=== PATIENT | female | born 1985 | race American Indian/Alaskan Native ===

== ENCOUNTER 2017-01-24 10:31 | Emergency (ER) | payer MEDICAID ==
--- NOTE | 2017-01-24 11:13 | Emergency Department Report ---
Entered by GALINA YOUNG, acting as scribe for APURVA AQUINO PA. Chief Complaint: Chest Pain Stated Complaint: CHEST PAIN/BI LATERAL ARM/LEG PAIN/NUMBNESS Time Seen by Provider: 01/24/17 10:58 - HPI History of Present Illness: 31 y/o female presents c/o right and left shoulder pain radiating down to arms, numbness, intermittent chest and abd pain. Pt denies vaginal bleeding or discharge and dysuria. 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 Well-developed, well-nourished. CV: Regular rate and rhythm. No murmurs rubs or gallops. Lungs: Clear to auscultation bilaterally. Abdomen: No tenderness to palpation in triage. No guarding or rebound tenderness. Normal bowel sounds. Mini Neuro: Alert and oriented 3. MSE screening note: Focused history and physical exam performed. Due to findings the following was ordered: ED Medical Decision Making - Medical Decision Making patient was in NAD in triage. cardiac pack and OB US was ordered ED Disposition for MSE Condition: Stable This documentation as recorded by the scribe,GALINA YOUNG,accurately reflects the service I personally performed and the decisions made by tx,APURVA AQUINO PA.
[2017-01-24 11:42] LABS: Creatine Kinase MB 2.2 ng/mL (0.0-4.0)
[2017-01-24 11:44] LABS: Alanine Aminotransferase 8 units/L (7-56); Albumin 3.1 g/dL (3.9-5); Alkaline Phosphatase 57 units/L (35-129); Anion Gap 18 mmol/L; Basophils % (Auto) 0.2 % (0.0-1.8); Bilirubin,Total < 0.20 mg/dL (0.1-1.2); Blood Urea Nitrogen 6 mg/dL (7-17); Calcium 8.1 mg/dL (8.4-10.2); Carbon Dioxide 21 mmol/L (22-30); Chloride 102.6 mmol/L (98-107); Creatine Kinase 115 units/L (30-135); Eosinophils % (Auto) 0.5 % (0.0-4.3); Glucose 105 mg/dL (65-100); Hematocrit 28.2 % (30.3-42.9); Hemoglobin 9.4 gm/dl (10.1-14.3); Lipase 28 units/L (13-60); Mean Corpuscular HGB Conc 33 % (30-34); Mean Corpuscular Hemoglobin 31 pg (28-32); Mean Corpuscular Volume 92 fl (79-97); Platelet Count 176 K/mm3 (140-440); Potassium 3.6 mmol/L (3.6-5.0); Red Blood Count 3.06 M/mm3 (3.65-5.03); Red Cell Distribution Width 12.9 % (13.2-15.2); Sodium 138 mmol/L (137-145); Total Protein 6.1 g/dL (6.3-8.2); White Blood Count 11.7 K/mm3 (4.5-11.0)
[2017-01-24 11:51] LABS: INR 1.09 (0.87-1.13)
[2017-01-24 11:52] LABS: Partial Thromboplastin Time 28.9 Sec. (24.2-36.6)
--- NOTE | 2017-01-24 11:58 | Ultrasound Report ---
OB ULTRASOUND GREATER THAN 14 WEEKS INDICATION: Pelvic pain. COMPARISON: None similar at this institution. TECHNIQUE: Transabdominal grayscale ultrasound with Doppler interrogation. Gestation: [place] Position: Transverse - head to maternal right Amniotic Fluid: WNL (7-24 cm) MISTY = 17.7 cm Placenta: Posterior Placental Grade: I Heart Rate: 127 BPM Cervical length: 4.4 cm (Normal > 3 cm) ANATOMY VISUALIZED: Stomach Kidneys Bladder 4 Chamber Heart Heart 3 Vessel Cord Abd. Cord Insert SPINE VISUALIZED: Limited spine due to position The following are not demonstrated due to maternal body habitus or lie: Neuroanatomy, diaphragm, spine BPD: 8.3 cm = 33 w 1 d HC: 29.5 cm = 32 w 3 d AC: 31.6 cm = 35 w 3 d FL: 6.2 cm = 32 w 0 d HC/AC Ratio: 86.5 Cephalic Index: 0.93 Estimated Weight: 2443 grams Clinical age = 32 w 4 d EDC: 03/17/2017 US Gest. Age = 33 w 1 d EDC: 03/13/2017 CONCLUSION: Single, viable intrauterine gestation with ultrasound estimated age of 33 weeks and 1 day and EDC of 03/13/2017, currently in transverse lie with details, as above. Thank you for the opportunity to participate in this patient's care.
[2017-01-24 13:08] LABS: Bacteria,Urine 1+ /HPF (Negative); Mucus,Urine FEW /HPF
[2017-01-24 13:16] LABS: Bilirubin,Urine NEG (Negative); Blood,Urine NEG (Negative); Ketones,Urine NEG (Negative); Leukocyte Esterase,Urine MOD (Negative); Nitrite,Urine NEG (Negative); Protein,Urine <15 mg/dL mg/dL (Negative); Urobilinogen,Urine < 2.0 mg/dL (<2.0)
[2017-01-24 15:42] VITALS: BP 126/82
--- NOTE | 2017-01-25 07:57 | Vascular Lab Report ---
LOWER EXTREMITY VENOUS DUPLEX: REASON FOR EXAM: Elevated d-dimer. COMMENTS ON THE RIGHT: All veins visualized are freely compressible without evidence of internal echogenicity. Flow is spontaneous and phasic throughout. COMMENTS ON THE LEFT: All veins visualized are freely compressible without evidence of internal echogenicity. Flow is spontaneous and phasic throughout. IMPRESSION: No evidence of acute or chronic deep venous thrombosis in either lower extremity.
== END 2017-01-24 15:40 | disposition left against medical advice (07) ==
LOC: ED 10:31
DX: M25.511 Pain in right shoulder (principal); M25.512 Pain in left shoulder; R20.0 Anesthesia of skin; R07.9 Chest pain, unspecified; R10.9 Unspecified abdominal pain
CPT/HCPCS: 36415; 76805; 80053; 81001; 82550; 82553; 83690; 84484; 85025; 85379; 85610; 85730; 93005; 93010; 93306; 93970; 99284

== ENCOUNTER 2017-01-24 16:53 | Emergency (ER) | payer MEDICAID ==
--- NOTE | 2017-01-24 17:25 | Emergency Department Report ---
ED Chest Pain HPI - General Chief Complaint: Chest Pain Stated Complaint: CP/ABD PAIN/NUMBNESS Time Seen by Provider: 01/24/17 17:20 Source: patient Mode of arrival: Ambulatory Limitations: No Limitations - History of Present Illness Initial Comments: patient approximately 32 weeks . Denies fam hx sudden cardiac , PE, DVT Complaint: chest pain -: days(s) Onset: during rest Pain Location: substernal Pain Radiation: none Severity scale (0 -10): 1 Quality: other (burning) Consistency: intermittent Improves With: nothing Worsens With: eating re: denies: nausea, vomting, diaphoresis, dyspnea, sense of impending doom Other Symptoms: denies: cough, fever, syncope, rash, acid taste in mouth, palpitations, burping - Related Data Home Medications Medication Instructions Recorded Confirmed Last Taken No Known Home Medications [No 01/24/17 01/24/17 Unknown Reported Home Medications] Allergies Allergy/AdvReac Type Severity Reaction Status Date / Time No Known Allergies Allergy Verified 01/24/17 17:01 REESE score - Reese Score Age > 65: (0) No Aspirin use within the Past 7 Days: (0) No 3 or more CAD Risk Factors: (0) No 2 or more Angina events in past 24 hrs: (0) No Known CAD with more than 50% Stenosis: (0) No Elevated Cardiac Markers: (0) No ST Deviation Greater than 0.5mm: (0) No REESE Score: 0 ED Review of Systems ROS: Stated complaint: CP/ABD PAIN/NUMBNESS Other details as noted in HPI Other: GENERAL: No weight change, fatigue, weakness, fever, chills, or night sweats SKIN: No changes in skin or hair, no itching, no rashes, no jaundice HEAD: No trauma, headache, or visual changes EYES: No blurriness, tearing, itching, acute visual loss, conjunctival discoloration, or scleral icterus EARS: No hearing loss, tinnitus, vertigo, or earache NOSE: No rhinorrhea, stuffiness, sneezing, itching, or epistaxis MOUTH: No bleeding gums, hoarseness, sore throat, or swelling CARDIAC: chest pain RESPIRATORY: No shortness of breath, wheeze, cough, sputum production, hemoptysis, pneumonia, asthma, bronchitis, or emphysema GI: No change in appetite, nausea, vomiting, dysphagia, change in bowel frequency, diarrhea, constipation, bleeding, hematemesis, melena, hematochezia, or abdominal pain URINARY: No frequency, urgency, polyuria, dysuria, hematuria, or incontinence MUSCULOSKELETAL: No muscle weakness, joint stiffness, decrease in range of motion, redness, swelling, tenderness NEUROLOGIC: No loss of sensation, numbness, tingling, tremors, weakness, paralysis, seizures HEMATOLOGIC: No anemia, easy bruising, bleeding, petechiae, or purpura ENDOCRINE: No hot or cold intolerance, sweating, polyuria, polydipsia or, polyphagia no thyroid problems PSYCHIATRIC: No change in mood, no anxiety, no depression ED Past Medical Hx - Past Medical History Previous Medical History?: No - Surgical History Past Surgical History?: No - Social History Smoking Status: Former Smoker Substance Use Type: None - Medications Home Medications: Home Medications Medication Instructions Recorded Confirmed Last Taken Type No Known Home Medications [No 01/24/17 01/24/17 Unknown History Reported Home Medications] ED Physical Exam - General Limitations: No Limitations - Other Other exam information: GENERAL: Patient in no acute distress HEAD: Normocephalic, atraumatic EYES: PERRLA, EOM intact, no scleral icterus, no papilledema, no conjunctival hemorrhage, visual marcial and acuity wnl, NOSE: No tenderness, discharge, sinus tenderness MOUTH: No erythema, bleeding, exudate HEART: Regular rate and rhythm, no murmur, S1-S2 are auscultated, pulses are symmetric LUNGS: No wheezing, rales, rhonchi, bilateral breath sounds ABDOMEN: Distended abdomen. Normal bowel sounds, no tenderness, no rebound, no guarding, no masses, no CVA tenderness MUSCULOSKELETAL: Normal joint range of motion, no redness, no swelling, no tenderness NEUROLOGIC: GCS 15, Alert and Oriented x3, Cranial nerves intact, normal sensation, normal strength, normal gait, no cerebellar deficit PSYCHIATRIC: No homicidal or suicidal ideation, no anxiety, no depression, no hallucinations SKIN: Skin is warm and dry, no wounds, no rashes ED Course Vital Signs 01/24/17 01/24/17 17:03 19:07 Temperature 98.4 F 98.4 F Pulse Rate 88 89 Respiratory 18 18 Rate Blood Pressure 117/74 Blood Pressure 120/70 [Left] O2 Sat by Pulse 98 100 Oximetry ED Medical Decision Making - EKG Data When compared to previous EKG there are: no significant change - Radiology Data Radiology results: report reviewed - Medical Decision Making At 1800 Dr. Be agrees low risk for PE with stable VSS, prolonged stable observation and normal ECHO and neg DVT. Ok to f/u o/p closely. AT 1754 Dr Carl cardiology recommends if suspicion high consider V/Q scan. Ok for discharge if low suspicion with o/p f/u. 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 Reports no chest pain. VSS. No acute distress. Prolonged stable observation. Patient comfortable. Updated with results. Plan discharge with outpatient follow-up. Patient agrees with plan and will return if symptoms worsen. Critical Care Time: Yes Critical care time in (mins) excluding proc time.: 42 Critical care attestation.: If time is entered above; I have spent that time in minutes in the direct care of this critically ill patient, excluding procedure time. ED Disposition Clinical Impression: Chest pain Qualifiers: Chest pain type: unspecified Qualified Code(s): R07.9 - Chest pain, unspecified Disposition: DISCHARGED TO HOME OR SELFCARE Is pt being admited?: No Condition: Stable Instructions: Chest Pain (ED) Referrals: VICKI CHUN MD [Staff Physician] - 2-3 Days MARTHA BE MD [Referring] - 2-3 Days Forms: Work/School Release Form(ED) Time of Disposition: 18:07
[2017-01-24 19:09] VITALS: BP 120/70
== END 2017-01-24 19:06 | disposition home or self-care (01) ==
LOC: ED 16:53
DX: O26.893 Other specified pregnancy related conditions, third trimester (principal); R07.9 Chest pain, unspecified; Z87.891 Personal history of nicotine dependence; Z3A.32 32 weeks gestation of pregnancy
CPT/HCPCS: 99282; 99291

== ENCOUNTER 2017-02-18 00:19 | Outpatient (CLI) | payer MEDICAID ==
[2017-02-18 00:32] VITALS: BP 119/68
[2017-02-18] MEDS ORDERED: LACTATED RINGERS 500 ML IV ONE (00:48)
== END 2017-02-18 01:25 | disposition home or self-care (01) ==
LOC: TRG 00:19
PROVIDERS: ATTEND Obstetrics & Gynecology
DX: O47.03 False labor before 37 completed weeks of gestation, third trimester (principal); Z3A.36 36 weeks gestation of pregnancy

== ENCOUNTER 2021-01-16 10:01 | Emergency (ER) | payer MEDICAID ==
[2021-01-16 10:12] VITALS: BP 142/98
[2021-01-16] MEDS ORDERED: FLUORESCEIN 1 MG STRIP OP ONE (10:49)
[2021-01-16] MEDS ORDERED: TETRACAINE 0.5% OPHTH SOLN 4ML OU PRN (10:49)
--- NOTE | 2021-01-16 10:49 | Emergency Department Report ---
ED General Adult HPI - General Chief complaint: Eye Problems Stated complaint: EYE IRRITATION Time Seen by Provider: 01/16/21 10:18 Source: patient Mode of arrival: Ambulatory Limitations: No Limitations - History of Present Illness Initial comments: 35-year-old -[place] female patient presents with complaints of right eye pain x2 days. Patient states while at work 2 days ago symptoms got in her eye and began to irritated. She states her eye began to water and that it has been in throbbing aching pain since. She denies any direct trauma to the eye, but admits to photophobia. No vision changes per patient. Pain worsens with touch, but not with movement of the eyeball per patient. She admits to waking up with her eye crusted shut this morning and purulent drainage. Patient rates her pain as 8/10 in severity and denies trying any OTC medications for symptoms. She is not a contact lens wearer per patient. Severity scale (0 -10): 7 - Related Data Previous Rx's Medication Instructions Recorded Last Taken Type Acetaminophen/Codeine [Tylenol 1 tab PO Q8H PRN #3 tab 01/16/21 Unknown Rx /Codeine # 3 tab] Erythromycin [Erythromycin Ophth 1 cm OP Q3H 7 Days #1 tube 01/16/21 Unknown Rx Oint] Ibuprofen [Motrin 800 MG tab] 800 mg PO Q8HR PRN #20 tablet 01/16/21 Unknown Rx Allergies Allergy/AdvReac Type Severity Reaction Status Date / Time No Known Allergies Allergy Verified 01/24/17 17:01 ED Review of Systems ROS: Stated complaint: EYE IRRITATION Other details as noted in HPI Constitutional: denies: chills, fever Eyes: eye pain, eye discharge. denies: vision change ENT: denies: ear pain, throat pain Respiratory: denies: cough Skin: denies: lesions, change in color Neurological: denies: headache Hematological/Lymphatic: denies: swollen glands ED Past Medical Hx - Past Medical History Previous Medical History?: No Hx Hypertension: No Hx Diabetes: No Hx Deep Vein Thrombosis: No Hx Renal Disease: No Hx Sickle Cell Disease: No Hx Seizures: No Hx Asthma: No Hx HIV: No - Surgical History Past Surgical History?: No - Social History Smoking Status: Former Smoker - Medications Home Medications: Home Medications Medication Instructions Recorded Confirmed Last Taken Type Acetaminophen/Codeine [Tylenol 1 tab PO Q8H PRN #3 tab 01/16/21 Unknown Rx /Codeine # 3 tab] Erythromycin [Erythromycin Ophth 1 cm OP Q3H 7 Days #1 tube 01/16/21 Unknown Rx Oint] Ibuprofen [Motrin 800 MG tab] 800 mg PO Q8HR PRN #20 tablet 01/16/21 Unknown Rx ED Physical Exam - General Limitations: No Limitations General appearance: alert, in no apparent distress - Head Head exam: Present: atraumatic, normocephalic - Eye Eye exam: Present: PERRL, EOMI (No pain with eye movements), conjunctival injection (Right with mild purulent drainage noted). Absent: scleral icterus Pupils: Present: other (Fluorescein stain of the right eye is negative for any corneal abrasion or ulceration) - Expanded Eye Exam Expanded Sclera/Conjunctival: Exudate: Right - Neck Neck exam: Present: normal inspection - Respiratory Respiratory exam: Absent: respiratory distress - Cardiovascular Cardiovascular Exam: Present: regular rate - Neurological Exam Neurological exam: Present: alert, oriented X3 - Psychiatric Psychiatric exam: Present: normal affect, normal mood ED Course Vital Signs 01/16/21 01/16/21 10:11 11:22 Temperature 99.1 F Pulse Rate 78 Respiratory 18 20 Rate Blood Pressure 142/98 [Right] O2 Sat by Pulse 98 Oximetry ED Medical Decision Making - Medical Decision Making 35-year-old -[place] female patient presents with complaints of right eye pain x2 days. Patient states while at work 2 days ago symptoms got in her eye and began to irritated. She states her eye began to water and that it has been in throbbing aching pain since. She denies any direct trauma to the eye, but admits to photophobia. No vision changes per patient. Pain worsens with touch, but not with movement of the eyeball per patient. She admits to waking up with her eye crusted shut this morning and purulent drainage. Patient rates her pain as 8/10 in severity and denies trying any OTC medications for symptoms. She is not a contact lens wearer per patient. Eyelid everted and swept and no foreign bodies noted on exam. No corneal abrasions noted on fluorescein stain. Will treat for acute bacterial conjunctivitis with erythromycin. Discussed signs and symptoms that should prompt immediate return to the emergency department in detail with patient who verbalized understanding. Patient to follow-up with ophthalmology as needed, referral provided. Critical care attestation.: If time is entered above; I have spent that time in minutes in the direct care of this critically ill patient, excluding procedure time. ED Disposition Clinical Impression: Acute bacterial conjunctivitis of right eye Disposition: DC- TO HOME OR SELFCARE Is pt being admited?: No Condition: Stable Instructions: Bacterial Conjunctivitis, Adult, How to Use Eye Drops and Eye Ointments Prescriptions: Erythromycin [Erythromycin Ophth Oint] 1 cm OP Q3H 7 Days #1 tube Ibuprofen [Motrin 800 MG tab] 800 mg PO Q8HR PRN #20 tablet PRN Reason: pain Acetaminophen/Codeine [Tylenol /Codeine # 3 tab] 1 tab PO Q8H PRN #3 tab PRN Reason: Pain , Severe (7-10) Referrals: BERNARDO LAWLER MD [Staff Physician] - as needed Forms: Work/School Release Form(ED)
[2021-01-16] MEDS ORDERED: ACETAMINOPHEN 325 MG TAB PO ONE (11:06)
[2021-01-16] MEDS ORDERED: IBUPROFEN 800 MG TAB PO ONE (11:06)
== END 2021-01-16 11:22 | disposition home or self-care (01) ==
LOC: ED 10:01
DX: H10.31 Unspecified acute conjunctivitis, right eye (principal); B96.89 Other specified bacterial agents as the cause of diseases classified elsewhere; Z87.891 Personal history of nicotine dependence; Z79.1 Long term (current) use of non-steroidal anti-inflammatories (NSAID); Z79.899 Other long term (current) drug therapy

== ENCOUNTER 2021-04-19 07:42 | Emergency (ER) | payer MEDICAID ==
[2021-04-19 07:49] VITALS: BP 115/79
[2021-04-19 08:22] LABS: Amorphous Crystals,Urine Few; Bacteria,Urine 1+ /HPF (Negative); Bilirubin,Urine NEG (Negative); Blood,Urine LG (Negative); Color,Urine Yellow (Yellow); Mucus,Urine FEW /HPF; Protein,Urine <15 mg/dL mg/dL (Negative); Urobilinogen,Urine < 2.0 mg/dL (<2.0)
[2021-04-19 08:37] LABS: Basophils % (Auto) 0.4 % (0.0-1.8); Eosinophils # (Auto) 0.1 K/mm3 (0.0-0.4); Eosinophils % (Auto) 0.7 % (0.0-4.3); Hematocrit 36.6 % (30.3-42.9); Hemoglobin 12.4 gm/dl (10.1-14.3); Lymphocytes # (Auto) 1.9 K/mm3 (1.2-5.4); Lymphocytes % (Auto) 25.7 % (13.4-35.0); Mean Corpuscular HGB Conc 34 % (30-34); Mean Corpuscular Volume 95 fl (79-97); Monocytes # (Auto) 0.5 K/mm3 (0.0-0.8); Monocytes % (Auto) 6.8 % (0.0-7.3); Platelet Count 199 K/mm3 (140-440); Red Blood Count 3.85 M/mm3 (3.65-5.03); Red Cell Distribution Width 13.9 % (13.2-15.2)
--- NOTE | 2021-04-19 10:10 | Emergency Department Report ---
ED HPI - General Chief complaint: Vaginal Bleeding Stated complaint: ABD PAIN/CRAMPS Time Seen by Provider: 04/19/21 09:44 Source: patient Mode of arrival: Ambulatory Limitations: Language Barrier - History of Present Illness Initial comments: 35-year-old female is currently about 10 weeks presents to the ER today with complaints of abnormal vaginal bleeding. Patient states that she started bleeding yesterday. She states that she felt like she had to use the bathroom, and while walking to the bathroom she started noticed something dripping down her leg and when she looked there was blood. She described it as bleeding similar to when she first starts her period. She states that she only had tissue, but did not use any pads, tampons a panty liner as yesterday. She states that the bleeding had stopped by around 3:00 in the afternoon. She states that when she woke up this morning the bleeding has started again but this time heavier than what it was yesterday. Again she only used tissue which she has had to only changed once. She reports no clots. She reports cramping in her lower abdomen area and in her vaginal area. She states that she did do some strenuous lifting the day before yesterday when she moved the sofa and 2-3 before that she accidentally slipped fell while running to bathroom and lying on her stomach but she had no bleeding or abdominal symptoms at the time. She denies any recent sexual intercourse. She denies any UTI symptoms. She denies any fever or chills. She is G4, P3 Ab0. Her [facility] is [facility]. She states she had oB US at about 8weeks but she states wasn't told of the results. Complaint: vaginal bleeding -: Sudden (Yesterday) - Related Data Previous Rx's Medication Instructions Recorded Last Taken Type Acetaminophen/Codeine [Tylenol 1 tab PO Q8H PRN #3 tab 01/16/21 Unknown Rx /Codeine # 3 tab] Erythromycin [Erythromycin Ophth 1 cm OP Q3H 7 Days #1 tube 01/16/21 Unknown Rx Oint] Ibuprofen [Motrin 800 MG tab] 800 mg PO Q8HR PRN #20 tablet 01/16/21 Unknown Rx Allergies Allergy/AdvReac Type Severity Reaction Status Date / Time No Known Allergies Allergy Verified 01/24/17 17:01 ED Review of Systems ROS: Stated complaint: ABD PAIN/CRAMPS Other details as noted in HPI Comment: All other systems reviewed and negative Constitutional: denies: chills, fever Eyes: denies: eye pain, eye discharge, vision change ENT: denies: ear pain, throat pain, dental pain, hearing loss, epistaxis, congestion, other Respiratory: denies: cough, shortness of breath, SOB with exertion, SOB at rest, wheezing Cardiovascular: denies: chest pain, palpitations, edema, syncope, paroxysmal nocturnal dyspnea Gastrointestinal: abdominal pain. denies: nausea, vomiting, diarrhea, constipation, hematemesis, hematochezia Genitourinary: other (abnormal vag bleeding). denies: urgency, dysuria, frequency, hematuria, discharge, abnormal menses, dyspareunia Musculoskeletal: denies: back pain, joint swelling, arthralgia, myalgia Skin: denies: rash, lesions, change in color, change in hair/nails Neurological: denies: headache, weakness, numbness, paresthesias, confusion, abnormal gait, vertigo Psychiatric: denies: anxiety, depression, auditory hallucinations, visual hallucinations, homicidal thoughts Hematological/Lymphatic: denies: easy bleeding, easy bruising ED Past Medical Hx - Past Medical History Previous Medical History?: No Hx Hypertension: No Hx Diabetes: No Hx Deep Vein Thrombosis: No Hx Renal Disease: No Hx Sickle Cell Disease: No Hx Seizures: No Hx Asthma: No Hx HIV: No - Surgical History Past Surgical History?: No - Social History Smoking Status: Former Smoker - Medications Home Medications: Home Medications Medication Instructions Recorded Confirmed Last Taken Type Acetaminophen/Codeine [Tylenol 1 tab PO Q8H PRN #3 tab 01/16/21 Unknown Rx /Codeine # 3 tab] Erythromycin [Erythromycin Ophth 1 cm OP Q3H 7 Days #1 tube 01/16/21 Unknown Rx Oint] Ibuprofen [Motrin 800 MG tab] 800 mg PO Q8HR PRN #20 tablet 01/16/21 Unknown Rx ED Physical Exam - General Limitations: Language Barrier General appearance: alert, in no apparent distress - Head Head exam: Present: atraumatic, normocephalic, normal inspection - Eye Eye exam: Present: normal appearance, PERRL, EOMI Pupils: Present: normal accommodation - ENT ENT exam: Present: normal exam, mucous membranes moist, TM's normal bilaterally - Neck Neck exam: Present: normal inspection - Respiratory Respiratory exam: Present: normal lung sounds bilaterally. Absent: respiratory distress, wheezes, rales - Cardiovascular Cardiovascular Exam: Present: regular rate, normal rhythm, normal heart sounds - GI/Abdominal GI/Abdominal exam: Present: soft, tenderness (Mild ttp right lower quadrant and suprapubic area without guarding or rebound). Absent: distended - Neurological Exam Neurological exam: Present: alert, oriented X3, CN II-XII intact, normal gait - Psychiatric Psychiatric exam: Present: normal affect, normal mood - Skin Skin exam: Present: intact ED Course Vital Signs 04/19/21 07:48 Temperature 98.0 F Pulse Rate 82 Respiratory 18 Rate Blood Pressure 115/79 O2 Sat by Pulse 98 Oximetry ED Medical Decision Making - Lab Data Result diagrams: 04/19/21 08:03 - Radiology Data Radiology results: report reviewed Patient: MARVIN JACKSON MR#: [id number] : 1985 Acct:[id number] Age/Sex: 35 / F ADM Date: 04/19/21 Loc: ED Attending Dr: Ordering Physician: PAOLA MORSE Date of Service: 04/19/21 Procedure(s): US OB transvaginal Accession Number(s): [id number] cc: PAOLA OMRSE ULTRASOUND OB TRANSVAGINAL HISTORY: 10 week gestation, vaginal bleeding TECHNIQUE: Transabdominal ultrasound imaging with color Doppler interrogation. COMPARISON: No relevant comparison at this facility FINDINGS: The uterus is anteverted and measures 13 x 8 x 9 cm. No obvious uterine mass. The cervix is closed and measures 4.3 cm. An intrauterine gestational sac containing a pole is identified. [place]- rump length measures 34 mm which correlates with a 10 week 2 day . EDC: 11/13/2021. heart rate measures 157 bpm. Amniotic fluid volume appears normal. The placenta appears to be forming posteriorly. A moderate subchorionic hemorrhage is identified along the superior border of the gestational sac measuring 2.5 x 1.2 x 2.7 cm. The right ovary measures 3.5 x 2.4 x 3.9 cm. A 2.6 cm hypoechoic areas identified within the right ovary which probably represents a corpus luteum cyst. The left ovary is unremarkable measuring 2.5 x 3.1 x 3.9 cm. No pelvic fluid collection. IMPRESSION: Viable single intrauterine as described. Moderate subchorionic hemorrhage. Probable corpus luteum cyst in the right ovary. Signer Name: Dennis Umana Jr, MD Signed: 04/19/2021 12:01 PM Workstation Name: [id number] Transcribed By: TTR Dictated By: DENNIS UMANA JR, MD Electronically Authenticated By: DENNIS UMANA JR, MD Signed Date/Time: 04/19/21 1201 - Medical Decision Making Patient currently resting comfortably in the room, sitting up eating and drinking. She is not in any acute distress. She reports no worsening vaginal bleeding since she has been here in the ER. She is not toxic or ill-appearing. She is neurologically intact. She has a nonsurgical abdominal exam. Her vital signs are stable. CBC unremarkable. Rh type is positive and therefore no indication for RhoGam at this time. Urinalysis appears more contaminated than a true UTI. Ultrasound shows Viable single intrauterine measuring 10 weeks and 2 days. Moderate subchorionic hemorrhage. Probable corpus luteum cyst in the right ovary. Discussed lab and ultrasound results with the patient. Discussed the diagnosis of threatened miscarriage and subchorionic hemorrhage with the patient. Patient given a copy of her ultrasound results and it was recommended that she follows up with [facility] this week. In the meantime she was instructed to do pelvic rest and avoid any strenuous activity or sexual contact until she follows up with the OB. Patient expressed understanding of her instructions and agree with plan. Patient was stable at time of discharge. Critical care attestation.: If time is entered above; I have spent that time in minutes in the direct care of this critically ill patient, excluding procedure time. ED Disposition Clinical Impression: Threatened miscarriage, Subchorionic hemorrhage Disposition: DC-01 TO HOME OR SELFCARE Is pt being admited?: No Does the pt Need Aspirin: No Condition: Stable Instructions: Threatened Miscarriage, [id number], Subchorionic Hematoma Additional Instructions: You can take Tylenol as needed for pain. I recommend no strenuous activity or sexual intercourse until follow-up with OB. I recommend that you try to follow- up with [facility] this week given your ultrasound showing moderate subchorionic he morrhage. Return to the ER if your symptoms changes or worsens in any way Referrals: [facility] [Provider Group] - 2-3 Days Time of Disposition: 12:18
[2021-04-19] MEDS ORDERED: ACETAMINOPHEN 325 MG TAB PO ONE (10:36)
--- NOTE | 2021-04-19 12:06 | Ultrasound Report ---
ULTRASOUND OB TRANSVAGINAL HISTORY: 10 week gestation, vaginal bleeding TECHNIQUE: Transabdominal ultrasound imaging with color Doppler interrogation. COMPARISON: No relevant comparison at this facility FINDINGS: The uterus is anteverted and measures 13 x 8 x 9 cm. No obvious uterine mass. The cervix is closed an d measures 4.3 cm. An intrauterine gestational sac containing a pole is identified. [place]-rump length measures 34 mm which correlates with a 10 week 2 day . EDC: 11/13/2021. heart rate measures 157 bpm . Amniotic fluid volume appears normal. The placenta appears to be forming posteriorly. A moderate subchorionic hemorrhage is identified along the superior border of the gestational sac pura suring 2.5 x 1.2 x 2.7 cm. The right ovary measures 3.5 x 2.4 x 3.9 cm. A 2.6 cm hypoechoic areas identified within the right ov karrie which probably represents a corpus luteum cyst. The left ovary is unremarkable measuring 2.5 x 3.1 x 3.9 cm. No pelvic fluid collection. IMPRESSION: Viable single intrauterine as described. Moderate subchorionic hemorrhage. Probable corpus luteum cyst in the right ovary. Signer Name: Dennis Umana Jr, MD Signed: 04/19/2021 12:01 PM Workstation Name: [id number]
== END 2021-04-19 12:51 | disposition home or self-care (01) ==
LOC: ED 07:42
DX: O20.0 Threatened abortion (principal); Z3A.10 10 weeks gestation of pregnancy
CPT/HCPCS: 36415; 76817; 81001; 84702; 84703; 85025; 86900; 86901; 99284

== ENCOUNTER 2021-08-27 11:34 | Outpatient (CLI) | payer MEDICAID, OTHER ==
[2021-08-27 12:07] VITALS: BP 112/59
[2021-08-27] MEDS ORDERED: LACTATED RINGERS 1,000 ML IV ONE (12:15)
[2021-08-27 13:13] LABS: Bilirubin,Urine SM (Negative); Blood,Urine NEG (Negative); Color,Urine Amber (Yellow); Mucus,Urine 3+ /HPF
[2021-08-27 13:39] LABS: Ictotest,Urine Positive (Negative)
--- NOTE | 2021-08-27 14:46 | Ultrasound Report ---
ULTRASOUND OBSTETRIC LIMITED INDICATION / CLINICAL INFORMATION: pt c/o leaking. TECHNIQUE: Transabdominal ultrasound imaging. COMPARISON: None available. FINDINGS: HEART RATE (beats per minute): 167 AMNIOTIC FLUID INDEX (cm) = 17.4 PRESENTATION: Cephalic. ADDITIONAL FINDINGS: None. IMPRESSION: No significant abnormality. Signer Name: Dennis Umana Jr, MD Signed: 08/27/2021 2:42 PM Workstation Name: [id number]
== END 2021-08-27 15:25 | disposition home or self-care (01) ==
LOC: TRG 11:34 → APU 11:36 → TRG 15:25
PROVIDERS: ATTEND Student in an Organized Health Care Education/Training Program
DX: O36.8130 Decreased fetal movements, third trimester, not applicable or unspecified (principal); Z3A.29 29 weeks gestation of pregnancy
CPT/HCPCS: 59025; 76815; 81001

== ENCOUNTER 2021-10-06 11:00 | Outpatient (CLI) | payer OTHER ==
[2021-10-06] MEDS ORDERED: LACTATED RINGERS 500 ML IV ONE (11:30)
[2021-10-06 11:33] VITALS: BP 109/66
--- NOTE | 2021-10-06 12:08 | Ultrasound Report ---
ULTRASOUND OBSTETRIC LIMITED ULTRASOUND BIOPHYSICAL PROFILE INDICATION / CLINICAL INFORMATION: Evaluate well being. Possible placental abruption. COMPARISON: None available. FINDINGS: BREATHING MOVEMENT = 2 GROSS BODY MOVEMENT = 2 TONE = 2 QUALITATIVE AMNIOTIC FLUID VOLUME = 2 TOTAL BIOPHYSICAL SCORE = 8/8 AMNIOTIC FLUID INDEX (cm) = 12 PRESENTATION: Cephalic. HEART RATE (beats per minute): 145 ADDITIONAL FINDINGS: The placenta is located posteriorly. No sonographic evidence of abruption. IMPRESSION: 1. Biophysical Score = 8/8 2. No sonographic evidence of placental abruption or other acute findings. Signer Name: Vadim Bernstein MD Signed: 10/06/2021 12:03 PM Workstation Name: [id number]
== END 2021-10-06 13:00 | disposition home or self-care (01) ==
LOC: TRG 11:00 → APU 11:02 → TRG 13:00
PROVIDERS: ATTEND Obstetrics & Gynecology
DX: Z34.93 Encounter for supervision of normal pregnancy, unspecified, third trimester (principal); Z3A.35 35 weeks gestation of pregnancy
CPT/HCPCS: 36415; 59025; 76815; 76819; 84112

== ENCOUNTER 2021-11-01 11:22 | Outpatient (CLI) | payer OTHER ==
[2021-11-01] MEDS ORDERED: LACTATED RINGERS 1,000 ML IV SCH (12:30)
[2021-11-01 12:53] VITALS: BP 109/56
--- NOTE | 2021-11-01 13:11 | Ultrasound Report ---
ULTRASOUND OBSTETRIC LIMITED ULTRASOUND BIOPHYSICAL PROFILE INDICATION / CLINICAL INFORMATION: f/u fall. Clinical Gestational Age (GA): 38.5 weeks.days COMPARISON: None available. FINDINGS: BREATHING MOVEMENT = 2 GROSS BODY MOVEMENT = 2 TONE = 2 QUALITATIVE AMNIOTIC FLUID VOLUME = 2 TOTAL BIOPHYSICAL SCORE = 8/8 HEART RATE (beats per minute): 174 AMNIOTIC FLUID INDEX (cm) = 9.5 (normal = 7-24 cm) PRESENTATION: Cephalic. ADDITIONAL FINDINGS: There is no evidence of placental abruption. Placenta is grade 1 and fundal. IMPRESSION: 1. Biophysical Score = 8/8 Signer Name: Alfredito Bradshaw MD Signed: 11/01/2021 1:06 PM Workstation Name: [id number]
== END 2021-11-01 13:11 | disposition home or self-care (01) ==
LOC: TRG 11:22 → APU 11:23 → TRG 13:11
PROVIDERS: ATTEND Obstetrics & Gynecology
DX: O26.893 Other specified pregnancy related conditions, third trimester (principal); W19.XXXA Unspecified fall, initial encounter; Z3A.38 38 weeks gestation of pregnancy
CPT/HCPCS: 59025; 76815; 76819

== ENCOUNTER 2022-03-13 12:22 | Emergency (ER) | payer OTHER | END 2022-03-13 12:54 | disposition left against medical advice (07) | LOC: ED 12:22 | DX: M25.531 Pain in right wrist (principal); M79.604 Pain in right leg; Z53.21 Procedure and treatment not carried out due to patient leaving prior to being seen by health care provider ==